=== PATIENT | female | born 1995 | race Caucasian/White ===

== ENCOUNTER 2017-10-27 18:37 | Inpatient (IN) | payer BC ==
[~2017-10-27] VITALS: Ht 162.6 cm; Wt 83.1 kg
[2017-10-27 18:45] VITALS: BP 111/66
[2017-10-27] MEDS ORDERED: OXYTOCIN 30U/ 0.9% NaCL 500ML 500 ML IV ONE (22:02)
[2017-10-27] MEDS ORDERED: LACTATED RINGERS 1,000 ML IV SCH ×2 (22:02→23:43)
[2017-10-27] MEDS ORDERED: D5%-LACTATED RINGERS 1,000 ML IV SCH (22:02)
[2017-10-27] MEDS ORDERED: OXYTOCIN 30U/ 0.9% NaCL 500ML 500 ML ONE (22:07)
[2017-10-27] MEDS ORDERED: NEWBORN KIT ONE (22:07)
[2017-10-27] MEDS ORDERED: METOCLOPRAMIDE 5 MG/ML, 2ML IVPush PRN (22:30)
[2017-10-27] MEDS ORDERED: SODIUM CITRATE/CITRIC ACID 30 ML UDC PO PRN (22:30)
[2017-10-27] MEDS ORDERED: LACTATED RINGERS 1,000 ML IVBOLUS PRN (22:30)
[2017-10-27] MEDS ORDERED: ONDANSETRON ODT 4 MG PO PRN (22:30)
[2017-10-27] MEDS ORDERED: FENTANYL PF 100 MCG/2ML IV PRN (22:30)
[2017-10-27] MEDS ORDERED: ONDANSETRON 2MG/ML, 2ML IVPush PRN (22:30)
[2017-10-27] MEDS ORDERED: CALCIUM CARBONATE 500 MG TAB.CHEW PO PRN (22:30)
[2017-10-27] MEDS ORDERED: FENTANYL PF 100 MCG/2ML IVPush PRN (22:30)
[2017-10-27 23:03] LABS: MEAN CORPUSCULAR HEMOGLOBIN 29.9 pg (27.0-34.8); MEAN CORPUSCULAR HGB CONC 32.9 g/dL (32.4-35.8); MEAN CORPUSCULAR VOLUME 90.7 fL (80-100); MEAN PLATELET VOLUME 9.9 fL (7.4-10.4); PLATELET COUNT 226 x10^3/uL (130-400); RED BLOOD COUNT 3.93 x10^6/uL (3.82-5.3); RED CELL DISTRIBUTION WIDTH 12.9 % (9.6-15.2)
[2017-10-27] MEDS ORDERED: BUPIVACAINE 0.25% ONE ×2 (23:08→23:11)
[2017-10-27] MEDS ORDERED: FENTANYL PF 100 MCG/2ML ONE (23:08)
[2017-10-27] MEDS ORDERED: FENTANYL/BUPIV./NS/PF 250 ML EPIDCONT ONE (23:08)
[2017-10-27] MEDS ORDERED: LIDOCAINE/PF 1.5%-EPI 1:200K, 30ML ONE (23:11)
[2017-10-27 23:35] LABS: MD YES
[2017-10-27 23:38] LABS: BASOS#(MANUAL) 0.18 x10^3/uL (0-0.1); BASOS% (MANUAL) 1 % (0-1); LYMPH#(MANUAL) 1.83 x10^3/uL (1-3.4); LYMPHS% (MANUAL) 10 % (22-44); MONOS% (MANUAL) 6 % (2-9); REACTIVE LYMPHS # (MANUAL) 0.37 x10^3/uL (0-0); REACTIVE LYMPHS % (MANUAL) 2 % (0-0); SEGS% (MANUAL) 81 % (42-75)
[2017-10-27 23:39] LABS: <PLATELET ESTIMATE> ADEQUATE; <RBC MORPHOLOGY> NORMAL; LARGE PLATELETS 1+; SMUDGE CELLS 1+
[2017-10-27] MEDS ORDERED: FENTANYL/BUPIV./NS/PF 250 ML EPIDCONT SCH (23:43)
[2017-10-28] MEDS ORDERED: LACTATED RINGERS 1,000 ML IVBOLUS PRN
[2017-10-28] MEDS ORDERED: EPHEDRINE 50 MG/ML, 1ML IVPush PRN
[2017-10-28] MEDS ORDERED: CALCIUM CARBONATE 500 MG TAB.CHEW ONE (00:03)
[2017-10-28] MEDS ORDERED: OXYTOCIN 30U/ 0.9% NaCL 500ML 500 ML IV PRN (00:13)
[2017-10-28] MEDS ORDERED: CALCIUM CARBONATE 500 MG TAB.CHEW PO PRN ×2 (00:30→08:00)
[2017-10-28] MEDS ORDERED: ONDANSETRON 2MG/ML, 2ML ONE (04:39)
[2017-10-28] MEDS ORDERED: MEASLES,MUMPS&RUBELLA VACC/PF 0.5 ML SQ-VACC PRN (08:00)
[2017-10-28] MEDS ORDERED: CARBOPROST TROMETHAMINE 250 MCG/ML, 1ML IM PRN (08:00)
[2017-10-28] MEDS ORDERED: ACETAMINOPHEN 325 MG TABLET PO PRN ×2 (08:00)
[2017-10-28] MEDS ORDERED: ONDANSETRON 2MG/ML, 2ML IV PRN (08:00)
[2017-10-28] MEDS ORDERED: MISOPROSTOL 200 MCG TABLET PR PRN (08:00)
[2017-10-28] MEDS ORDERED: BISACODYL 10 MG SUPP PR PRN (08:00)
[2017-10-28] MEDS ORDERED: METOCLOPRAMIDE 5 MG/ML, 2ML IV PRN (08:00)
[2017-10-28] MEDS ORDERED: METHYLERGONOVINE 0.2 MG/ML IM PRN (08:00)
[2017-10-28] MEDS ORDERED: DIPH,PERTUSS(ACELL),TET VAC/PF NC IM-VACC PRN (08:00)
[2017-10-28] MEDS ORDERED: OXYcodone/APAP 5/325MG TABLET PO PRN ×2 (08:00)
[2017-10-28] MEDS ORDERED: MAGNESIUM HYDROXIDE 8%, 30ML UDC PO PRN (08:00)
[2017-10-28] MEDS ORDERED: RHOGAM FROM BLOOD BANK 1 NOTE EA IM/IV ONE (08:00)
[2017-10-28] MEDS ORDERED: IBUPROFEN 600 MG TABLET ONE (08:54)
[2017-10-28] MEDS: PRENATAL VIT/IRON/FA 1 EACH TABLET PO SCH (09:00)
[2017-10-28] MEDS: IBUPROFEN 600 MG TABLET PO PRN ×3 (09:02→23:42)
[2017-10-28] MEDS ORDERED: OXYTOCIN 30U/ 0.9% NaCL 500ML 500 ML ONE (09:21)
[2017-10-28] MEDS: OXYTOCIN 30U/ 0.9% NaCL 500ML 500 ML IV SCH ×2 (10:24→17:53)
[2017-10-28 11:15] VITALS: BP 108/59
[2017-10-28 17:15] VITALS: BP 113/74
[2017-10-28 20:00] VITALS: BP 119/72
[2017-10-28 23:37] LABS: MEAN CORPUSCULAR HEMOGLOBIN 30.2 pg (27.0-34.8); MEAN CORPUSCULAR HGB CONC 33.2 g/dL (32.4-35.8); MEAN PLATELET VOLUME 9.6 fL (7.4-10.4); PLATELET COUNT 235 x10^3/uL (130-400)
[2017-10-28] MEDS: DOCUSATE 100 MG CAPSULE PO PRN (23:42)
[2017-10-29 00:10] VITALS: BP 114/71
[2017-10-29 00:13] LABS: BASOPHILS # (AUTO) 0.05 x10^3/uL (0-0.1); BASOPHILS % (AUTO) 0 % (0-1); EOSINOPHILS # (AUTO) 0.17 x10^3/uL (0-0.4); EOSINOPHILS % (AUTO) 1 % (1-7); LYMPHOCYTES # (AUTO) 2.62 x10^3/uL (1-3.4); LYMPHOCYTES % (AUTO) 15 % (22-44); MD SCAN; MONOCYTES # (AUTO) 0.97 x10^3/uL (0.2-0.8); MONOCYTES % (AUTO) 5 % (2-9); NEUTROPHILS # (AUTO) 14.28 x10^3/uL (1.8-6.8); NEUTROPHILS % (AUTO) 79 % (42-75)
[2017-10-29] MEDS: OXYTOCIN 30U/ 0.9% NaCL 500ML 500 ML IV SCH ×2 (03:53→04:28)
[2017-10-29] MEDS: PRENATAL VIT/IRON/FA 1 EACH TABLET PO SCH (07:42)
[2017-10-29] MEDS: IBUPROFEN 600 MG TABLET PO PRN ×2 (07:43→14:06)
[2017-10-29] MEDS: DOCUSATE 100 MG CAPSULE PO PRN (07:43)
[2017-10-29 07:45] VITALS: BP 112/74
[2017-10-29] MEDS ORDERED: IBUP-1222 PO (16:18)
== END 2017-10-29 17:06 | disposition home or self-care (01) | DRG 775 ==
LOC: LDOP 18:37 → LDIP 22:12 → 2NW 10-28 10:40
PROVIDERS: ADMIT Obstetrics & Gynecology; ATTEND Obstetrics & Gynecology
PROC: 0KQM0ZZ Repair Perineum Muscle, Open Approach (ICD-10-PCS; principal; 2017-10-27)
PROC: 10E0XZZ Delivery of Products of Conception, External Approach (ICD-10-PCS; 2017-10-27)
PROC: 10907ZC Drainage of Amniotic Fluid, Therapeutic from Products of Conception, Via Natural or Artificial Opening (ICD-10-PCS; 2017-10-27)
PROC: 3E0R3BZ Introduction of Anesthetic Agent into Spinal Canal, Percutaneous Approach (ICD-10-PCS; 2017-10-27)
PROC: 00HU33Z Insertion of Infusion Device into Spinal Canal, Percutaneous Approach (ICD-10-PCS; 2017-10-27)
DX: O77.0 Labor and delivery complicated by meconium in amniotic fluid (principal); O70.1 Second degree perineal laceration during delivery; Z3A.40 40 weeks gestation of pregnancy; Z37.0 Single live birth
CPT/HCPCS: 36415; 76815; 84112; 85025; 86850; 86900; 89060; J2405; J3490; J2590; J7120; Q0114

== ENCOUNTER 2020-01-09 12:54 | Emergency (ER) | payer BC, OTHER ==
[~2020-01-09] VITALS: Ht 162.6 cm; Wt 70.9 kg
[~2020-01-09 12:54] MED LIST: IBUP-1222 PO
[2020-01-09 12:56] VITALS: BP 103/53
--- NOTE | 2020-01-09 13:15 | NUR ---
md is at the bedside for assessment/consult.
--- NOTE | 2020-01-09 13:23 | NUR ---
PT AMBULATED TO THE RESTROOM WITH A STEADY GAIT. URINE SAMPLE PROVIDED, AND WALKED TO THE LAB FOR ANALYSIS.
--- NOTE | 2020-01-09 13:31 | NUR ---
PHLEBOTOMY IS AT THE BEDSIDE FOR BLOOD SAMPLING
[2020-01-09 13:45] LABS: BASOPHILS # (AUTO) 0.01 x10^3/uL (0-0.1); BASOPHILS % (AUTO) 0 % (0-1); EOSINOPHILS # (AUTO) 0.05 x10^3/uL (0-0.4); EOSINOPHILS % (AUTO) 0 % (1-7); LYMPHOCYTES # (AUTO) 1.67 x10^3/uL (1-3.4); LYMPHOCYTES % (AUTO) 11 % (22-44); MD NO; MEAN CORPUSCULAR HEMOGLOBIN 32.4 pg (27.0-34.8); MEAN CORPUSCULAR HGB CONC 33.7 g/dL (32.4-35.8); MEAN CORPUSCULAR VOLUME 96.3 fL (80-100); MEAN PLATELET VOLUME 8.9 fL (7.4-10.4); MONOCYTES # (AUTO) 0.54 x10^3/uL (0.2-0.8); MONOCYTES % (AUTO) 4 % (2-9); NEUTROPHILS % (AUTO) 85 % (42-75); PLATELET COUNT 232 x10^3/uL (130-400); RED BLOOD COUNT 4.51 x10^6/uL (3.82-5.3); RED CELL DISTRIBUTION WIDTH 12.3 % (9.6-15.2)
--- NOTE | 2020-01-09 13:53 | NUR ---
PT TOLERATED ULTRASOUND WELL. WE ARE AWAITING RESULTS FROM RADIOLOGY.
[2020-01-09 13:56] LABS: ANION GAP 8 mmol/L (5-15); CALCIUM 8.9 mg/dL (8.5-10.1); CHLORIDE 107 mmol/L (98-107)
[2020-01-09 13:57] LABS: ALANINE AMINOTRANSFERASE 23 U/L (12-78)
[2020-01-09 13:59] LABS: MICROSCOPIC INDICATED
[2020-01-09 15:16] LABS: ALKALINE PHOSPHATASE 48 U/L (45-117); BILIRUBIN,TOTAL 0.4 mg/dL (0.2-1.0); TOTAL PROTEIN 7.6 g/dL (6.4-8.2)
[2020-01-09] MEDS ORDERED: POTASSIUM CHLORIDE 20 MEQ TAB.ER.PRT PO ONE (15:30)
[2020-01-09] MEDS ORDERED: CEFDINIR 300 MG CAPSULE PO ONE (15:30)
[2020-01-09] MEDS ORDERED: CEFDINIR 300 MG CAPSULE ONE (15:35)
--- NOTE | 2020-01-09 15:35 | NUR ---
CHRISTINA (RN) IS ASSUMING CARE OF THIS PT WHILE I ENJOY A LUNCHBREAK. SBAR REPORT WAS EXCHANGED AT THE BEDSIDE.
[2020-01-09] MEDS ORDERED: POTASSIUM CHLORIDE 20 MEQ TAB.ER.PRT ONE (15:36)
--- NOTE | 2020-01-09 15:37 | NUR ---
task rn: medicated per emar
== END 2020-01-09 15:53 | disposition home or self-care (01) ==
LOC: ED 15:45
DX: O23.41 Unspecified infection of urinary tract in pregnancy, first trimester (principal); R10.2 Pelvic and perineal pain; R55 Syncope and collapse; R11.2 Nausea with vomiting, unspecified; R94.31 Abnormal electrocardiogram [ECG] [EKG]; E87.6 Hypokalemia; Z3A.01 Less than 8 weeks gestation of pregnancy
CPT/HCPCS: 36415; 76801; 80053; 81001; 84702; 85025; 87086; 93005; 99285